=== PATIENT | male | born 1985 | race Caucasian/White ===

== ENCOUNTER 2020-06-22 07:35 | Observation (INO) ==
[2020-06-22] MEDS ORDERED: 0.9 % Sodium Chloride 1,000 ML IVC ONE (08:26)
[2020-06-22 08:40] LABS: Basophils % 0.2 %; Eosinophils % 0.1 %; Hematocrit 48.7 % (37.5-50.1); Hemoglobin 16.5 g/dL (12.9-16.9); Immature Granulocytes % 0.3 % (0-4); Lymphocytes # 2.7 K/mcL (0.6-4.6); Lymphocytes % 13.7 %; Mean Corpuscular HGB Conc 33.9 g/dL (31.6-35.5); Mean Corpuscular Hemoglobin 28.6 pg (28.0-33.3); Mean Corpuscular Volume 84.4 fL (83.0-100.0); Mean Platelet Volume 9.8 fL (9.4-12.4); Monocytes # 1.8 K/mcL (0.0-1.3); Monocytes % 9.1 %; Neutrophils # 14.9 K/mcL (1.6-8.9); Platelet Count 329 K/mcL (140-400); Red Blood Count 5.77 M/mcL (4.19-5.50); Red Cell Distribution Width 12.4 % (11.5-14.5); Segmented Neutrophils % 76.6 %; White Blood Count 19.5 K/mcL (4.3-11.1)
[2020-06-22 08:42] LABS: Bilirubin,Urine Negative (Negative); Blood,Urine Negative (Negative); Clarity,Urine Clear (Clear); Color,Urine Light-Orange (Yellow); Glucose,Urine (UA) Normal (Normal); Ketones,Urine Negative (Negative); Leukocyte Esterase,Urine Negative (Negative); Mucus,Urine Many per lpf (None-Few); Nitrite,Urine Negative (Negative); Protein,Urine 50 mg/dL (Neg-Trace); Specific Gravity,Urine > 1.030 (1.010-1.025); WBC,Urine 0-3 per hpf (0-3)
[2020-06-22 08:57] LABS: Alanine Aminotransferase 27 Units/L (7-52); Albumin 4.7 g/dL (3.5-5.7); Albumin/Globulin Ratio 1.5 (1.1-2.2); Alkaline Phosphatase 112 Units/L (34-104); Aspartate Amino Transferase 20 Units/L (13-39); BUN/Creatinine Ratio 13 (6-26); Bilirubin,Direct 0.4 mg/dL (0.0-0.2); Bilirubin,Indirect 1.4 mg/dL (0.0-1.0); Bilirubin,Total 1.8 mg/dL (0.3-1.0); Blood Urea Nitrogen 14 mg/dL (6-20); Calcium 9.4 mg/dL (8.6-10.3); Carbon Dioxide 24 mEq/L (23-29); Chloride 100 mEq/L (98-107); Globulin 3.2 g/dL (2.4-3.5); Glucose 140 mg/dL (70-105); Lipase 23 Units/L (11-82); Osmolality,Calculated 281 (280-300); Potassium 3.3 mEq/L (3.5-5.1); Sodium 134 mEq/L (136-145); Total Protein 7.9 g/dL (6.4-8.9); eGFR For African Americans > 60 (> 60); eGFR For Non-African Americans > 60 (> 60)
[2020-06-22] MEDS ORDERED: Isovue-370 500 ML BOTTLE IVP ONE (08:59)
[2020-06-22] MEDS ORDERED: Piperacillin/Tazobactam 3.375 GM in 0.9 % Sodium Chloride Mini Bag 100 ML IVPB ONE (09:45)
[2020-06-22] MEDS ORDERED: Ondansetron 4 MG/2 ML VIAL IVP ONE (09:54)
[2020-06-22] MEDS ORDERED: Morphine Sulfate 2 MG/ML SYRINGE IVP ONE (09:54)
[2020-06-22] MEDS ORDERED: 0.9 % Sodium Chloride 1,000 ML IVC SCH (12:00)
[2020-06-22] MEDS ORDERED: *HR* Midazolam HCl 2 MG/2 ML VIAL ONE (13:33)
[2020-06-22] MEDS ORDERED: *HR* FentaNYL (PF) 100 MCG/2 ML VIAL ONE ×2 (13:33→15:41)
[2020-06-22] MEDS ORDERED: *HR* Propofol 200 MG/20 ML VIAL IVP ONE (13:34)
[2020-06-22] MEDS ORDERED: Ondansetron 4 MG/2 ML VIAL ONE ×2 (13:37→15:11)
[2020-06-22] MEDS ORDERED: Lidocaine -MPF 2% 2 ML VIAL ONE (13:37)
[2020-06-22] MEDS ORDERED: Dexamethasone 4 MG/ML VIAL ONE (13:37)
[2020-06-22] MEDS ORDERED: *HR* Rocuronium Bromide 50 MG/5 ML VIAL ONE (13:37)
[2020-06-22] MEDS ORDERED: *HR* Succinylcholine 200 MG/10 ML VIAL IVP ONE (13:37)
[2020-06-22] MEDS ORDERED: *HR* HYDROmorphone PF 0.5 MG/0.5 ML SYRINGE IVP PRN (14:43)
[2020-06-22] MEDS ORDERED: *HR* FentaNYL (PF) 100 MCG/2 ML VIAL IVP PRN (14:43)
[2020-06-22] MEDS ORDERED: Naloxone 0.4 MG/ML INJ IVP PRN (14:45)
[2020-06-22] MEDS ORDERED: ceFAZolin 2,000 MG in Water for inj. (sterile) 20 ML IVP ONE (15:15)
[2020-06-22] MEDS: Ketorolac 15 MG/ML VIAL IVP SCH ×2 (18:14→22:34)
[2020-06-22] MEDS: 0.9 % Sodium Chloride 1,000 ML IVC SCH (18:14)
[2020-06-22] MEDS: *HR* OxyCODONE/APAP 5/325 TABLET PO PRN (22:34)
[2020-06-22] MEDS: Piperacillin/Tazobactam 3.375 GM in 0.9 % Sodium Chloride Mini Bag 100 ML IVPB SCH (22:35)
[2020-06-22] MEDS: Ondansetron 4 MG/2 ML VIAL IVP PRN (22:37)
[2020-06-23] MEDS: 0.9 % Sodium Chloride 1,000 ML IVC SCH (02:36)
[2020-06-23] MEDS: Ketorolac 15 MG/ML VIAL IVP SCH (05:19)
[2020-06-23] MEDS: *HR* OxyCODONE/APAP 5/325 TABLET PO PRN (05:20)
[2020-06-23] MEDS: Ondansetron 4 MG/2 ML VIAL IVP PRN (05:20)
[2020-06-23] MEDS: Piperacillin/Tazobactam 3.375 GM in 0.9 % Sodium Chloride Mini Bag 100 ML IVPB SCH (09:12)
[2020-06-23 10:01] VITALS: BP 103/66
== END 2020-06-23 14:00 | disposition home or self-care (01) ==
LOC: 3ANU 07:35 → EMEROOARM 07:35 → 3ANU 11:39
PROVIDERS: ADMIT Surgery; ATTEND Surgery